=== PATIENT | male | born 1970 | race African-American/Black ===

== ENCOUNTER 2017-11-09 13:41 | Inpatient (IN) | payer OTHER ==
[2017-11-09 14:28] VITALS: BMI 24.2
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
[2017-11-09] MEDS ORDERED: guaiFENesin/D-METHORPHAN HB 10 ML UNIT-DOSE CUPS PO PRN (19:42)
[2017-11-09] MEDS ORDERED: MAGNESIUM CITRATE 300 ML BOTTLE PO PRN (19:42)
[2017-11-09] MEDS ORDERED: MENTHOL/PHENOL 1 EACH UD MM PRN (19:42)
[2017-11-09] MEDS ORDERED: MAG HYDROX/AL HYDROX/SIMETH 30 ML UNIT-DOSE CUP PO PRN (19:42)
[2017-11-09] MEDS ORDERED: LOPERAMIDE HCL 2 MG CAPSULE PO PRN (19:42)
[2017-11-09] MEDS ORDERED: MAGNESIUM HYDROX 2400MG/30ML ORAL SUSPENSION 30 ML CUP PO PRN (19:42)
[2017-11-09] MEDS ORDERED: P-EPHED 60MG/TRIPROLIDI 2.5MG TABLET PO PRN (19:42)
[2017-11-09] MEDS ORDERED: ACETAMINOPHEN 325 MG TABLET (FP) PO PRN (19:42)
[2017-11-09] MEDS ORDERED: PANTOPRAZOLE 40 MG TABLET (FP) PO ONE (20:15)
[2017-11-09] MEDS: THIAMINE HCL 100 MG TABLET (FP) PO SCH (23:04)
[2017-11-09] MEDS: NAPROXEN 500 MG TABLET (FP) PO SCH (23:04)
[2017-11-09] MEDS: GABAPENTIN 100 MG CAPSULE (FP) PO SCH (23:04)
[2017-11-09] MEDS: AMITRIPTYLINE HCL 25 MG TABLET (FP) PO SCH (23:04)
[2017-11-09] MEDS: NICOTINE 14 MG/24 HOURS TOPICAL PATCH TD SCH (23:05)
[2017-11-09] MEDS: BACLOFEN 10 MG TABLET (FP) PO SCH (23:05)
[2017-11-09] MEDS ORDERED: TUBERCULIN PPD 5 TU/0.1ML VIAL ID ONE (23:11)
[2017-11-10] MEDS: BACLOFEN 10 MG TABLET (FP) PO SCH ×3 (06:33→21:15)
[2017-11-10] MEDS: GABAPENTIN 100 MG CAPSULE (FP) PO SCH ×3 (06:33→21:15)
[2017-11-10] MEDS: PRENATAL VITAMINS W/ FOLIC ACID TABLET (FP) PO SCH (09:57)
[2017-11-10] MEDS: NAPROXEN 500 MG TABLET (FP) PO SCH ×2 (09:58→21:15)
[2017-11-10] MEDS: NICOTINE 14 MG/24 HOURS TOPICAL PATCH TD SCH (09:58)
[2017-11-10 10:31] LABS: HEMATOCRIT 47.6 % (35.4-49); HEMOGLOBIN 15.7 GM/dL (11.7-16.9); MEAN PLT VOLUME 8.9 fl (7.5-11.1); PLATELET COUNT 226 K/MM3 (134-434); RBC 5.23 M/mm3 (4.00-5.60); RDW 13.9 % (11.9-15.9); WHITE BLOOD COUNT 5.5 K/mm3 (4.0-10.0)
[2017-11-10 10:48] LABS: ALBUMIN 3.8 g/dl (3.4-5.0); BLOOD UREA NITROGEN 13 mg/dL (7-18); CHLORIDE 107 mmol/L (98-107); GLUCOSE,RANDOM 95 mg/dL (74-106); POTASSIUM 4.3 mmol/L (3.5-5.1); SODIUM 139 mmol/L (136-145)
[2017-11-10 10:57] LABS: ALK PHOS 71 U/L (45-117); ANION GAP 6 (8-16); BILIRUBIN,TOTAL 0.5 mg/dL (0.2-1.0); CALCIUM 8.5 mg/dL (8.5-10.1); CO2 26 mmol/L (21-32); CREATININE 1.1 mg/dL (0.7-1.3); SGOT/AST 17 U/L (15-37); SGPT/ALT 27 U/L (12-78); TOT PROT 6.6 g/dl (6.4-8.2)
[2017-11-10] MEDS ORDERED: FLU VACCINE QUAD 60 MCG/0.5 ML (MDV 17-18) IM ONE (12:00)
--- NOTE | 2017-11-10 14:19 | EKG ---
Test Reason : Blood Pressure : / mmHG Vent. Rate : 067 BPM Atrial Rate : 067 BPM P-R Int : 116 ms QRS Dur : 112 ms QT Int : 400 ms P-R-T Axes : 053 069 053 degrees QTc Int : 422 ms NORMAL SINUS RHYTHM NO PREVIOUS ECGS AVAILABLE POOR DATA QUALITY, INTERPRETATION MAY BE ADVERSELY AFFECTED Confirmed by RAINA MITCHELL MD ([id number]) on 11/10/2017 2:18:38 PM Referred By: Confirmed By:RAINA MITCHELL MD
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
[2017-11-10] MEDS: THIAMINE HCL 100 MG TABLET (FP) PO SCH (21:14)
[2017-11-10] MEDS: AMITRIPTYLINE HCL 25 MG TABLET (FP) PO SCH (21:15)
[2017-11-11] MEDS: GABAPENTIN 100 MG CAPSULE (FP) PO SCH ×3 (06:44→21:00)
[2017-11-11] MEDS: BACLOFEN 10 MG TABLET (FP) PO SCH ×3 (06:44→21:01)
[2017-11-11] MEDS: PRENATAL VITAMINS W/ FOLIC ACID TABLET (FP) PO SCH (09:40)
[2017-11-11] MEDS: CITALOPRAM HYDROBROMIDE 10 MG TABLET (FP) PO SCH (09:40)
[2017-11-11] MEDS: NAPROXEN 500 MG TABLET (FP) PO SCH ×2 (09:40→21:01)
[2017-11-11] MEDS: NICOTINE 14 MG/24 HOURS TOPICAL PATCH TD SCH (09:41)
[2017-11-11] MEDS: AMITRIPTYLINE HCL 25 MG TABLET (FP) PO SCH (21:00)
[2017-11-11] MEDS: THIAMINE HCL 100 MG TABLET (FP) PO SCH (21:00)
[2017-11-12] MEDS: BACLOFEN 10 MG TABLET (FP) PO SCH ×3 (06:27→21:02)
[2017-11-12] MEDS: GABAPENTIN 100 MG CAPSULE (FP) PO SCH ×3 (06:27→21:02)
[2017-11-12] MEDS: NICOTINE 14 MG/24 HOURS TOPICAL PATCH TD SCH (09:42)
[2017-11-12] MEDS: NAPROXEN 500 MG TABLET (FP) PO SCH ×2 (09:42→21:01)
[2017-11-12] MEDS: CITALOPRAM HYDROBROMIDE 10 MG TABLET (FP) PO SCH (09:42)
[2017-11-12] MEDS: PRENATAL VITAMINS W/ FOLIC ACID TABLET (FP) PO SCH (09:42)
[2017-11-12] MEDS: THIAMINE HCL 100 MG TABLET (FP) PO SCH (21:02)
[2017-11-12] MEDS: AMITRIPTYLINE HCL 25 MG TABLET (FP) PO SCH (21:02)
[2017-11-13] MEDS: GABAPENTIN 100 MG CAPSULE (FP) PO SCH ×3 (06:34→21:05)
[2017-11-13] MEDS: BACLOFEN 10 MG TABLET (FP) PO SCH ×3 (06:34→21:05)
[2017-11-13] MEDS: NAPROXEN 500 MG TABLET (FP) PO SCH ×2 (09:55→21:05)
[2017-11-13] MEDS: PRENATAL VITAMINS W/ FOLIC ACID TABLET (FP) PO SCH (09:55)
[2017-11-13] MEDS: NICOTINE 14 MG/24 HOURS TOPICAL PATCH TD SCH (09:55)
[2017-11-13] MEDS: CITALOPRAM HYDROBROMIDE 10 MG TABLET (FP) PO SCH (09:55)
[2017-11-13] MEDS: THIAMINE HCL 100 MG TABLET (FP) PO SCH (21:05)
[2017-11-13] MEDS: AMITRIPTYLINE HCL 25 MG TABLET (FP) PO SCH (21:05)
[2017-11-14] MEDS: GABAPENTIN 100 MG CAPSULE (FP) PO SCH (06:34)
[2017-11-14] MEDS: BACLOFEN 10 MG TABLET (FP) PO SCH ×3 (06:34→21:08)
--- NOTE | 2017-11-14 09:43 | PN ---
[facility] Progress Note (SOAP) Subjective: naSAL CONGESTION, PERIPHERAL NEUROAPTHY R/O CARPAL TUNNEL STILL C/O NUMBNESS AND TINGLING FINGERS Objective: 11/14/17 09:42 Vital Signs - 24 hr 11/14/17 11/14/17 11/14/17 00:30 03:30 06:33 Temperature 97.2 F L Pulse Rate 75 Respiratory 18 18 18 Rate Blood Pressure 124/83 11/14/17 07:50 Temperature 97.1 F L Pulse Rate 97 H Respiratory 18 Rate Blood Pressure 119/72 Laboratory Tests 11/10/17 11/10/17 11/10/17 07:00 07:00 07:00 WBC 5.5 RBC 5.23 Hgb 15.7 Hct 47.6 MCV 91.0 MCH 30.0 MCHC 33.0 RDW 13.9 Plt Count 226 MPV 8.9 Sodium 139 Potassium 4.3 Chloride 107 Carbon Dioxide 26 Anion Gap 6 L BUN 13 Creatinine 1.1 Creat Clearance w eGFR > 60 POC Glucometer Random Glucose 95 Calcium 8.5 Total Bilirubin 0.5 AST 17 ALT 27 Alkaline Phosphatase 71 Total Protein 6.6 Albumin 3.8 RPR Titer Nonreactive HIV 1&2 Antibody Screen HIV P24 Antigen 11/10/17 11/14/17 07:00 06:33 WBC RBC Hgb Hct MCV MCH MCHC RDW Plt Count MPV Sodium Potassium Chloride Carbon Dioxide Anion Gap BUN Creatinine Creat Clearance w eGFR POC Glucometer 103 Random Glucose Calcium Total Bilirubin AST ALT Alkaline Phosphatase Total Protein Albumin RPR Titer HIV 1&2 Antibody Screen Negative HIV P24 Antigen Negative LABS REVEWIED WITH PATIENT, CONGESTED Assessment: 11/14/17 09:42 ALLEGIES 0 START FLONAS AND CLARITIN , INCREASE NUERONTIN FOR NEUROPATHY
[2017-11-14] MEDS: CITALOPRAM HYDROBROMIDE 10 MG TABLET (FP) PO SCH (10:17)
[2017-11-14] MEDS: PRENATAL VITAMINS W/ FOLIC ACID TABLET (FP) PO SCH (10:17)
[2017-11-14] MEDS: NAPROXEN 500 MG TABLET (FP) PO SCH ×2 (10:17→21:08)
[2017-11-14] MEDS: NICOTINE 14 MG/24 HOURS TOPICAL PATCH TD SCH (10:18)
[2017-11-14] MEDS: LORATADINE 10 MG TABLET PO SCH (10:18)
[2017-11-14] MEDS: FLUTICASONE PROP 0.05% 16 GM NASAL SPRAY NS SCH (13:55)
[2017-11-14] MEDS: GABAPENTIN 300 MG CAPSULE (FP) PO SCH ×2 (14:31→21:08)
[2017-11-14 14:40] LABS: URINE APPEARANCE CLEAR; URINE BILIRUBIN NEGATIVE (NEGATIVE); URINE BLOOD NEGATIVE (NEGATIVE); URINE COLOR LTYELLOW; URINE GLUCOSE (UA) NEGATIVE (NEGATIVE); URINE KETONE NEGATIVE (NEGATIVE); URINE LEUK ESTERASE NEGATIVE (NEGATIVE); URINE NITRITE NEGATIVE (NEGATIVE); URINE PROTEIN NEGATIVE (NEGATIVE); URINE UROBILINOGEN NEGATIVE mg/dL (0.2-1.0)
[2017-11-14] MEDS: AMITRIPTYLINE HCL 25 MG TABLET (FP) PO SCH (21:08)
[2017-11-14] MEDS: THIAMINE HCL 100 MG TABLET (FP) PO SCH (21:08)
[2017-11-15] MEDS: BACLOFEN 10 MG TABLET (FP) PO SCH ×3 (06:07→21:10)
[2017-11-15] MEDS: GABAPENTIN 300 MG CAPSULE (FP) PO SCH ×3 (06:07→21:10)
[2017-11-15] MEDS: CITALOPRAM HYDROBROMIDE 10 MG TABLET (FP) PO SCH (10:10)
[2017-11-15] MEDS: NAPROXEN 500 MG TABLET (FP) PO SCH ×2 (10:10→21:10)
[2017-11-15] MEDS: NICOTINE 14 MG/24 HOURS TOPICAL PATCH TD SCH (10:10)
[2017-11-15] MEDS: PRENATAL VITAMINS W/ FOLIC ACID TABLET (FP) PO SCH (10:10)
[2017-11-15] MEDS: FLUTICASONE PROP 0.05% 16 GM NASAL SPRAY NS SCH (10:10)
[2017-11-15] MEDS: LORATADINE 10 MG TABLET PO SCH (10:10)
[2017-11-15] MEDS: THIAMINE HCL 100 MG TABLET (FP) PO SCH (21:10)
[2017-11-15] MEDS: AMITRIPTYLINE HCL 25 MG TABLET (FP) PO SCH (21:10)
[2017-11-16] MEDS: BACLOFEN 10 MG TABLET (FP) PO SCH ×3 (05:51→21:09)
[2017-11-16] MEDS: GABAPENTIN 300 MG CAPSULE (FP) PO SCH ×3 (05:51→21:09)
[2017-11-16] MEDS: CITALOPRAM HYDROBROMIDE 10 MG TABLET (FP) PO SCH (09:52)
[2017-11-16] MEDS: PRENATAL VITAMINS W/ FOLIC ACID TABLET (FP) PO SCH (09:52)
[2017-11-16] MEDS: LORATADINE 10 MG TABLET PO SCH (09:52)
[2017-11-16] MEDS: NAPROXEN 500 MG TABLET (FP) PO SCH ×2 (09:52→21:09)
[2017-11-16] MEDS: FLUTICASONE PROP 0.05% 16 GM NASAL SPRAY NS SCH (09:52)
[2017-11-16] MEDS: NICOTINE 14 MG/24 HOURS TOPICAL PATCH TD SCH (09:53)
[2017-11-16] MEDS: NICOTINE POLACRILEX 2 MG GUM BUC PRN (09:54)
[2017-11-16] MEDS: AMITRIPTYLINE HCL 25 MG TABLET (FP) PO SCH (21:09)
[2017-11-16] MEDS: THIAMINE HCL 100 MG TABLET (FP) PO SCH (21:09)
[2017-11-17] MEDS: BACLOFEN 10 MG TABLET (FP) PO SCH ×3 (06:22→21:07)
[2017-11-17] MEDS: GABAPENTIN 300 MG CAPSULE (FP) PO SCH ×3 (06:22→21:07)
[2017-11-17] MEDS: CITALOPRAM HYDROBROMIDE 10 MG TABLET (FP) PO SCH (09:39)
[2017-11-17] MEDS: NAPROXEN 500 MG TABLET (FP) PO SCH ×2 (09:39→21:07)
[2017-11-17] MEDS: PRENATAL VITAMINS W/ FOLIC ACID TABLET (FP) PO SCH (09:39)
[2017-11-17] MEDS: LORATADINE 10 MG TABLET PO SCH (09:39)
[2017-11-17] MEDS: FLUTICASONE PROP 0.05% 16 GM NASAL SPRAY NS SCH (09:40)
[2017-11-17] MEDS: NICOTINE POLACRILEX 2 MG GUM BUC PRN (09:40)
[2017-11-17] MEDS: NICOTINE 14 MG/24 HOURS TOPICAL PATCH TD SCH (09:40)
[2017-11-17] MEDS: AMITRIPTYLINE HCL 25 MG TABLET (FP) PO SCH (21:07)
[2017-11-17] MEDS: THIAMINE HCL 100 MG TABLET (FP) PO SCH (21:07)
[2017-11-18] MEDS: GABAPENTIN 300 MG CAPSULE (FP) PO SCH ×3 (06:43→21:02)
[2017-11-18] MEDS: BACLOFEN 10 MG TABLET (FP) PO SCH ×3 (06:43→21:02)
[2017-11-18] MEDS: FLUTICASONE PROP 0.05% 16 GM NASAL SPRAY NS SCH (09:48)
[2017-11-18] MEDS: NAPROXEN 500 MG TABLET (FP) PO SCH ×2 (09:48→21:02)
[2017-11-18] MEDS: PRENATAL VITAMINS W/ FOLIC ACID TABLET (FP) PO SCH (09:48)
[2017-11-18] MEDS: CITALOPRAM HYDROBROMIDE 10 MG TABLET (FP) PO SCH (09:48)
[2017-11-18] MEDS: LORATADINE 10 MG TABLET PO SCH (09:48)
[2017-11-18] MEDS: NICOTINE 14 MG/24 HOURS TOPICAL PATCH TD SCH (11:00)
[2017-11-18] MEDS: AMITRIPTYLINE HCL 25 MG TABLET (FP) PO SCH (21:02)
[2017-11-18] MEDS: THIAMINE HCL 100 MG TABLET (FP) PO SCH (21:02)
[2017-11-19] MEDS: GABAPENTIN 300 MG CAPSULE (FP) PO SCH ×3 (06:14→21:09)
[2017-11-19] MEDS: BACLOFEN 10 MG TABLET (FP) PO SCH ×3 (06:14→21:09)
[2017-11-19] MEDS: NAPROXEN 500 MG TABLET (FP) PO SCH ×2 (10:10→21:09)
[2017-11-19] MEDS: LORATADINE 10 MG TABLET PO SCH (10:10)
[2017-11-19] MEDS: NICOTINE 14 MG/24 HOURS TOPICAL PATCH TD SCH (10:10)
[2017-11-19] MEDS: CITALOPRAM HYDROBROMIDE 10 MG TABLET (FP) PO SCH (10:10)
[2017-11-19] MEDS: PRENATAL VITAMINS W/ FOLIC ACID TABLET (FP) PO SCH (10:10)
[2017-11-19] MEDS: FLUTICASONE PROP 0.05% 16 GM NASAL SPRAY NS SCH (10:30)
[2017-11-19] MEDS: AMITRIPTYLINE HCL 25 MG TABLET (FP) PO SCH (21:09)
[2017-11-19] MEDS: THIAMINE HCL 100 MG TABLET (FP) PO SCH (21:09)
[2017-11-19] MEDS: hydrOXYzine PAMOATE 50 MG CAPSULE (FP) PO PRN (21:11)
[2017-11-20] MEDS: BACLOFEN 10 MG TABLET (FP) PO SCH ×3 (06:40→21:02)
[2017-11-20] MEDS: GABAPENTIN 300 MG CAPSULE (FP) PO SCH ×3 (06:40→21:02)
[2017-11-20] MEDS: PRENATAL VITAMINS W/ FOLIC ACID TABLET (FP) PO SCH (09:45)
[2017-11-20] MEDS: CITALOPRAM HYDROBROMIDE 10 MG TABLET (FP) PO SCH (09:45)
[2017-11-20] MEDS: NAPROXEN 500 MG TABLET (FP) PO SCH ×2 (09:46→21:02)
[2017-11-20] MEDS: LORATADINE 10 MG TABLET PO SCH (09:46)
[2017-11-20] MEDS: NICOTINE 14 MG/24 HOURS TOPICAL PATCH TD SCH (09:46)
[2017-11-20] MEDS: FLUTICASONE PROP 0.05% 16 GM NASAL SPRAY NS SCH (09:46)
[2017-11-20] MEDS: THIAMINE HCL 100 MG TABLET (FP) PO SCH (21:02)
[2017-11-20] MEDS: AMITRIPTYLINE HCL 25 MG TABLET (FP) PO SCH (21:02)
[2017-11-20] MEDS: hydrOXYzine PAMOATE 50 MG CAPSULE (FP) PO PRN (21:03)
[2017-11-21] MEDS: BACLOFEN 10 MG TABLET (FP) PO SCH ×3 (06:01→21:08)
[2017-11-21] MEDS: GABAPENTIN 300 MG CAPSULE (FP) PO SCH ×3 (06:01→21:08)
[2017-11-21] MEDS: PRENATAL VITAMINS W/ FOLIC ACID TABLET (FP) PO SCH (09:47)
[2017-11-21] MEDS: CITALOPRAM HYDROBROMIDE 10 MG TABLET (FP) PO SCH (09:47)
[2017-11-21] MEDS: NAPROXEN 500 MG TABLET (FP) PO SCH ×2 (09:47→21:08)
[2017-11-21] MEDS: LORATADINE 10 MG TABLET PO SCH (09:47)
[2017-11-21] MEDS: FLUTICASONE PROP 0.05% 16 GM NASAL SPRAY NS SCH (09:47)
[2017-11-21] MEDS: NICOTINE 14 MG/24 HOURS TOPICAL PATCH TD SCH (09:47)
--- NOTE | 2017-11-21 10:45 | PN ---
[facility] Progress Note (SOAP) Subjective: c/o constipation and hemorrhoids Objective: 11/21/17 10:44 Vital Signs - 24 hr 11/21/17 11/21/17 11/21/17 00:30 03:30 06:40 Temperature 97.4 F L Pulse Rate 81 Respiratory 18 18 18 Rate Blood Pressure 131/95 Laboratory Tests 11/10/17 11/10/17 11/10/17 07:00 07:00 07:00 WBC 5.5 RBC 5.23 Hgb 15.7 Hct 47.6 MCV 91.0 MCH 30.0 MCHC 33.0 RDW 13.9 Plt Count 226 MPV 8.9 Sodium 139 Potassium 4.3 Chloride 107 Carbon Dioxide 26 Anion Gap 6 L BUN 13 Creatinine 1.1 Creat Clearance w eGFR > 60 POC Glucometer Random Glucose 95 Calcium 8.5 Total Bilirubin 0.5 AST 17 ALT 27 Alkaline Phosphatase 71 Total Protein 6.6 Albumin 3.8 Urine Color Urine Appearance Urine pH Ur Specific Schlater Urine Protein Urine Glucose (UA) Urine Ketones Urine Blood Urine Nitrite Urine Bilirubin Urine Urobilinogen Ur Leukocyte Esterase RPR Titer Nonreactive HIV 1&2 Antibody Screen HIV P24 Antigen 11/10/17 11/14/17 11/14/17 07:00 06:33 10:45 WBC RBC Hgb Hct MCV MCH MCHC RDW Plt Count MPV Sodium Potassium Chloride Carbon Dioxide Anion Gap BUN Creatinine Creat Clearance w eGFR POC Glucometer 103 Random Glucose Calcium Total Bilirubin AST ALT Alkaline Phosphatase Total Protein Albumin Urine Color Ltyellow Urine Appearance Clear Urine pH 6.0 Ur Specific Schlater 1.014 Urine Protein Negative Urine Glucose (UA) Negative Urine Ketones Negative Urine Blood Negative Urine Nitrite Negative Urine Bilirubin Negative Urine Urobilinogen Negative Ur Leukocyte Esterase Negative RPR Titer HIV 1&2 Antibody Screen Negative HIV P24 Antigen Negative 11/15/17 11/16/17 11/17/17 06:06 05:50 06:22 WBC RBC Hgb Hct MCV MCH MCHC RDW Plt Count MPV Sodium Potassium Chloride Carbon Dioxide Anion Gap BUN Creatinine Creat Clearance w eGFR POC Glucometer 88 94 88 Random Glucose Calcium Total Bilirubin AST ALT Alkaline Phosphatase Total Protein Albumin Urine Color Urine Appearance Urine pH Ur Specific Schlater Urine Protein Urine Glucose (UA) Urine Ketones Urine Blood Urine Nitrite Urine Bilirubin Urine Urobilinogen Ur Leukocyte Esterase RPR Titer HIV 1&2 Antibody Screen HIV P24 Antigen 11/18/17 11/19/17 11/20/17 06:42 06:14 06:40 WBC RBC Hgb Hct MCV MCH MCHC RDW Plt Count MPV Sodium Potassium Chloride Carbon Dioxide Anion Gap BUN Creatinine Creat Clearance w eGFR POC Glucometer 92 103 95 Random Glucose Calcium Total Bilirubin AST ALT Alkaline Phosphatase Total Protein Albumin Urine Color Urine Appearance Urine pH Ur Specific Schlater Urine Protein Urine Glucose (UA) Urine Ketones Urine Blood Urine Nitrite Urine Bilirubin Urine Urobilinogen Ur Leukocyte Esterase RPR Titer HIV 1&2 Antibody Screen HIV P24 Antigen 11/21/17 06:00 WBC RBC Hgb Hct MCV MCH MCHC RDW Plt Count MPV Sodium Potassium Chloride Carbon Dioxide Anion Gap BUN Creatinine Creat Clearance w eGFR POC Glucometer 92 Random Glucose Calcium Total Bilirubin AST ALT Alkaline Phosphatase Total Protein Albumin Urine Color Urine Appearance Urine pH Ur Specific Schlater Urine Protein Urine Glucose (UA) Urine Ketones Urine Blood Urine Nitrite Urine Bilirubin Urine Urobilinogen Ur Leukocyte Esterase RPR Titer HIV 1&2 Antibody Screen HIV P24 Antigen Assessment: 11/21/17 10:44 chornic [id number] =- well controlled, would lilke to continue current medications, colace for constipation, anusol suppositroy for hanal fissure/hemorrhoids
[2017-11-21] MEDS ORDERED: PANTOPRAZOLE 40 MG TABLET (FP) PO SCH (11:00)
[2017-11-21] MEDS ORDERED: PHENYLEPHRINE 0.25%/STARCH 1 EACH SUPP.RECT RC ONE (11:15)
[2017-11-21] MEDS: TOLNAFTATE 1% CREAM 15 GM TUBE TP SCH ×2 (11:46→21:11)
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
[2017-11-21] MEDS: THIAMINE HCL 100 MG TABLET (FP) PO SCH (21:08)
[2017-11-21] MEDS: AMITRIPTYLINE HCL 25 MG TABLET (FP) PO SCH (21:08)
[2017-11-21] MEDS ORDERED: DOCUSATE SODIUM 100 MG CAPSULE (FP) PO SCH (22:00)
[2017-11-22] MEDS: BACLOFEN 10 MG TABLET (FP) PO SCH (06:06)
[2017-11-22] MEDS: GABAPENTIN 300 MG CAPSULE (FP) PO SCH (06:06)
[2017-11-22 06:39] VITALS: BP 145/94; PULSE 63; TEMP 97.5
== END 2017-11-22 06:55 | disposition home or self-care (01) | DRG 772 ==
LOC: YASAS 13:41 → Y5N 17:33
PROVIDERS: ADMIT Psychiatry & Neurology Psychiatry; ATTEND Psychiatry & Neurology Psychiatry
PROC: HZ42ZZZ Group Counseling for Substance Abuse Treatment, Cognitive-Behavioral (ICD-10-PCS; principal; 2017-11-09)
DX: F14.20 Cocaine dependence, uncomplicated (principal); F12.20 Cannabis dependence, uncomplicated; F17.210 Nicotine dependence, cigarettes, uncomplicated; F33.9 Major depressive disorder, recurrent, unspecified; F32.9 Major depressive disorder, single episode, unspecified; F43.10 Post-traumatic stress disorder, unspecified; R09.81 Nasal congestion; Z87.828 Personal history of other (healed) physical injury and trauma
CPT/HCPCS: 36415; 80053; 81003; 82962; 85027; 86593; 87389; 90688; 93005; 93010; J0475

== ENCOUNTER 2018-03-06 04:43 | Emergency (ER) | payer OTHER ==
[2018-03-06] MEDS ORDERED: TETANUS AND DIPHTHERIA TOXOID 0.5 ML DISP.SYRIN IM ONE (05:11)
[2018-03-06] MEDS ORDERED: DIPHTH,PERTUSS(ACELL),TET 0.5 ML DISP.SYRIN IM ONE (05:16)
[2018-03-06 05:28] VITALS: TEMP 97; BMI 25.1
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
[2018-03-06] MEDS ORDERED: levETIRAcetam 500 MG/5 ML INJECTION VIAL IVPB ONE (06:26)
[2018-03-06 07:16] LABS: BASO % 0.5 % (0-2.0); EOS % 0.2 % (0-4.5); HEMATOCRIT 46.8 % (35.4-49); HEMOGLOBIN 15.7 GM/dL (11.7-16.9); LYMPH % 4.6 % (8-40); MCHC 33.5 g/dl (32.0-35.9); MEAN CELL VOLUME 89.5 fl (80-96); MEAN PLT VOLUME 8.7 fl (7.5-11.1); MONO % 2.8 % (3.8-10.2); NEUT % 91.9 % (42.8-82.8); PLATELET COUNT 206 K/MM3 (134-434); RBC 5.23 M/mm3 (4.00-5.60); RDW 13.7 % (11.9-15.9); WHITE BLOOD COUNT 16.2 K/mm3 (4.0-10.0)
[2018-03-06 07:25] VITALS: BP 154/85; PULSE 83
[2018-03-06 07:32] LABS: ANION GAP 7 (8-16); BLOOD UREA NITROGEN 22 mg/dL (7-18); CALCIUM 9.2 mg/dL (8.5-10.1); CHLORIDE 103 mmol/L (98-107); CO2 28 mmol/L (21-32); CREATININE 1.2 mg/dL (0.7-1.3); GLUCOSE,RANDOM 122 mg/dL (74-106); POTASSIUM 4.5 mmol/L (3.5-5.1); SODIUM 138 mmol/L (136-145)
[2018-03-06 07:49] LABS: INR 0.98 (0.82-1.09); PROTHROMBIN TIME (PATIENT) 11.1 SEC (9.7-13.0)
[2018-03-06 07:52] LABS: ACTIVATED PTT 26.6 SECONDS (26.9-34.4)
[2018-03-06 10:15] LABS: PLATELET ESTIMATE NORMAL
--- NOTE | 2018-03-06 12:14 | EKG ---
Test Reason : Blood Pressure : / mmHG Vent. Rate : 082 BPM Atrial Rate : 082 BPM P-R Int : 122 ms QRS Dur : 074 ms QT Int : 346 ms P-R-T Axes : 066 068 063 degrees QTc Int : 404 ms SINUS RHYTHM WITH PREMATURE SUPRAVENTRICULAR COMPLEXES EARLY REPOLARIZATION OTHERWISE NORMAL ECG Confirmed by MD PREM, KERA ([id number]) on 03/06/2018 12:14:04 PM Referred By: Confirmed By:KERA AMARO MD
== END 2018-03-06 07:50 | disposition short-term general hospital (02) ==
LOC: JER 04:43
PROC: 3E0234Z Introduction of Serum, Toxoid and Vaccine into Muscle, Percutaneous Approach (ICD-10-PCS; principal; 2018-03-06)
DX: S06.6X9A Traumatic subarachnoid hemorrhage with loss of consciousness of unspecified duration, initial encounter (principal); S02.0XXA Fracture of vault of skull, initial encounter for closed fracture; W17.89XA Other fall from one level to another, initial encounter; Y93.89 Activity, other specified; Y92.89 Other specified places as the place of occurrence of the external cause; Y99.8 Other external cause status; F17.210 Nicotine dependence, cigarettes, uncomplicated; F14.10 Cocaine abuse, uncomplicated; F12.10 Cannabis abuse, uncomplicated; Z18.89 Other specified retained foreign body fragments
CPT/HCPCS: 36415; 70450-TC; 71045-TC-FY; 72125-TC; 80048; 85025; 85610; 85730; 86850; 86900; 86901; 90471; 90715; 93005; 93010; 96374; 99284-25

== ENCOUNTER → 2019-05-28 | Outpatient (CLI) | payer OTHER | LOC: YHH 11:18 ==